=== PATIENT | male | born 1965 | race African-American/Black ===

== ENCOUNTER 2025-07-06 14:03 | Observation (INO) ==
--- NOTE | 2025-07-06 19:03 | DR.GENAD ---
HPI Time Seen Time Seen by Provider: 07/06/25 17:27 PCP Primary Care Physician: Dr.Evelyn Whittaker HPI Comment HPI Comment: [facility] due to PEG tube being pulled out by patient. Patient is nonverbal with dementia. Patient dependent on PEG tube for feeding. No catheter placed to replace PEG tube. Complaint/Symptoms Chief Complaint:: pt was sent over from [facility] due to his peg tube coming out. COVID-19 Coronavirus risk:travel/contact w/high risk person: No Has patient experienced Coronavirus symptoms: No Source History Provided: Patient Mode of Arrival Mode of Arrival: EMS Timing Onset of Chief Complaint: 07/06/25 PMH PMH Past Medical History: Yes Past Medical History: Anemia, COPD, CVA, Dementia, Depression, Dyslipidemia and Hypertension Past Medical History Comment: dysphagia, CVA Past Surgical History: Yes Surgical History: Other Past Surgical History Comment: peg tube Family History History of Family Medical Conditions: No (unknown) Social History Type of Tobacco Use: None Alcohol Use: None Do you use any recreational Drugs:: No Lives With: Other Lives Where: Care Home Travel Risk Coronavirus risk:travel/contact w/high risk person: No Has patient experienced Coronavirus symptoms: No Infectious screening Have you traveled outside the country in the last 6 months?: No Isolation: Standard ROS Review of Systems Unable to Obtain Due To: Dementia PE Vital Signs Vitals: Vital Signs Temperature 98.7 F Pulse Rate 91 Respiratory Rate 16 Blood Pressure 117/80 O2 Sat by Pulse Oximetry 96 Head Head Exam: Normal Inspection Eyes Eye exam: Normal Appearance Neck Neck Exam: Normal Inspection Chest Chest Inspection: Normal Inspection Respiratory Respiratory Exam: Normal Lung Sounds Bilat Respiratory Exam: Bilateral: Clear to Auscultation Cardiovascular Cardiovascular Exam: Regular Rate and Normal Rhythm Abdominal Exam Abdominal Exam: Normal Inspection, Normal Bowel Sounds, Soft and Other (PEG tube not in place. No bleeding. PEG tube incision appears to have closed and had unsuccessful attempt.) Extremities Extremities Exam: Normal Inspection Back Back Exam: Normal Inspection Skin Skin Exam: Warm, Dry, Intact and Normal Color COURSE Treatment Treatment: Discussed case with patient's family and they are agreeable to admission after discussing with Dr. Montiel, surgeon and planning to replace PEG tube in OR in the morning. Opioid Opioid Risk Tool Age (Mike box if 16-45): No History of Preadolescent Sexual Abuse: No Total: 0 Total Score Risk Category: Low Risk Copyright: [employer] [place] predicting aberrant behaviors Discharge Plan Diagnosis Discharge Problem: PEG tube malfunction, Visit for feeding tube placement Discharge Plan Patient Disposition: 09 ADMITTED INPATIENT Condition: Stable Prescriptions: No Action mirtazapine 15 mg tablet 15 mg PO QPM amlodipine 10 mg tablet 10 mg PO QDAY baclofen 20 mg tablet 20 mg PO QID clopidogrel 75 mg tablet 75 mg PO QDAY lisinopril 20 mg tablet 20 mg PO QDAY levetiracetam 500 mg tablet 500 mg PO TID donepezil 5 mg tablet 5 mg PO HS atorvastatin 80 mg tablet 80 mg PO HS megestrol 400 mg/10 mL (40 mg/mL) suspension 400 mg PO BID multivitamin Tablet 1 tab PO DAILY acetaminophen [Tylenol] 325 mg Tablet 650 mg PO Q6H PRN (Reason: Pain) polyethylene glycol 3350 [Miralax] 17 gram Powder In Packet 17 g PO DAILY magnesium hydroxide [Milk of Magnesia] 400 mg/5 mL Suspension 15 ml PO HS protein [Beneprotein] Powder 1 ea PO TID Rx Instructions: 1 scoop po TID for supplementation mix in 8 oz with liquid of choice aspirin 81 mg Tablet,Chewable 81 mg PO DAILY omeprazole 40 mg capsule,delayed release(DR/EC) 40 mg feeding tube BID Health Concerns: Post Hospitalization: new medications and changes needed to prevent readmission or further decline. Pt educated and given instructions on all concerns. Plan of Treatment: Continue with present treatment and follow up plan. Pt is to keep follow up appointment as instructed and take medications as ordered. Orders to Discharge Patient Discharge Orders: Transfer (Routine); Ordered 07/06/25 Ordered By: Dustin Webb Follow ups/Referrals Follow ups/Referrals: AUGUSTO WHITTAKER [Primary Care Provider] - 3 days Instructions Stand Alone Forms: Find Help Web Site, Post Hospital Follow Up Care Print Language: ANDORRAN
[2025-07-06 19:52] LABS: MEAN PLATELET VOLUME 8.8 fL (7.4-11.0); RED CELL DISTRIBUTION WIDTH 17.3 % (11.6-16.5)
[2025-07-06 20:05] LABS: COR CA(FOR HYPOALB) 9.5 mg/dL (8.5-10.1); CREATININE 0.87 mg/dL (0.70-1.30); eGFR NON BLACK RACES > 60 (>60)
[2025-07-06] MEDS ORDERED: MORPHINE SULFATE INJ 2 MG INJ IVP PRN (20:22)
[2025-07-06] MEDS ORDERED: CONSULT PHARMACY - POTASSIUM & MAGNESIUM XX SCH (20:22)
[2025-07-06] MEDS ORDERED: K-DUR TAB 20 MEQ PO SCH (22:00)
[2025-07-06] MEDS: NS 250 ML IV 250 ML IV ONE (22:23)
[2025-07-06] MEDS: K-RIDER 10 MEQ/100 ML WATER 10 MEQ/100 ML BAG IV SCH (22:24)
[2025-07-06] MEDS: KEPPRA INJ 500 MG in NS 100 ML IV 100 ML IV SCH (22:27)
[2025-07-07] MEDS: HIBICLENS WASH EXT ONE (06:01)
[2025-07-07 06:27] LABS: MEAN PLATELET VOLUME 9.6 fL (7.4-11.0); RED CELL DISTRIBUTION WIDTH 17.1 % (11.6-16.5)
[2025-07-07 06:39] LABS: COR CA(FOR HYPOALB) 9.7 mg/dL (8.5-10.1); CREATININE 1.02 mg/dL (0.70-1.30); eGFR NON BLACK RACES > 60 (>60)
[2025-07-07] MEDS: DIPRIVAN VIAL 20 ML ONE ×2 (11:01→11:34)
[2025-07-07] MEDS: NS 1,000 ML IV 300 ML IV PRN (11:10)
[2025-07-07] MEDS: XYLOCAINE 2 % (PLAIN) IVP PRN (11:12)
[2025-07-07] MEDS: DIPRIVAN VIAL 300 ML IVP PRN (11:13)
[2025-07-07] MEDS: MARCAINE 0.5% ONE (11:24)
[2025-07-07] MEDS: NS 1,000 ML IV 1,000 ML ONE (11:38)
[2025-07-07] MEDS: NS 1,000 ML IV 1,000 ML IV STA (14:54)
[2025-07-08 06:14] LABS: MEAN PLATELET VOLUME 8.7 fL (7.4-11.0); RED CELL DISTRIBUTION WIDTH 17.0 % (11.6-16.5)
[2025-07-08 06:26] LABS: COR CA(FOR HYPOALB) 9.5 mg/dL (8.5-10.1); CREATININE 0.89 mg/dL (0.70-1.30); eGFR NON BLACK RACES > 60 (>60)
[2025-07-08 09:06] VITALS: BMI 24.5
[2025-07-08 13:06] VITALS: BP 135/81; PULSE 92; RESP 20; TEMP 99.5; O2SAT 98
== END 2025-07-08 14:38 ==
LOC: MED/SURG 14:03 → ER 14:03 → MED/SURG 21:22
PROVIDERS: ADMIT Surgery; ATTEND Surgery
DX: F03.90 Unspecified dementia, unspecified severity, without behavioral disturbance, psychotic disturbance, mood disturbance, and anxiety; E78.5 Hyperlipidemia, unspecified; R74.8 Abnormal levels of other serum enzymes; E87.6 Hypokalemia; Z74.01 Bed confinement status; R79.89 Other specified abnormal findings of blood chemistry; Z86.73 Personal history of transient ischemic attack (TIA), and cerebral infarction without residual deficits; J44.9 Chronic obstructive pulmonary disease, unspecified; F32.89 Other specified depressive episodes; D64.89 Other specified anemias; I10 Essential (primary) hypertension; Z66 Do not resuscitate; K94.29 Other complications of gastrostomy